=== PATIENT | female | born 1995 | race Hispanic/Latino ===

== ENCOUNTER → 2019-08-18 | Emergency (ER) | payer SELFPAY ==
[~2019-08-18] VITALS: Ht 165.1 cm; Wt 81.6 kg
[~2019-08-18] MED LIST: ASPIRIN 81 MG CHEW TAB PO ONE; CEFTRIAXONE SOD 1 GM/NS 50 ML 50 ML IV ONE; IOPAMIDOL 370 MG/ML 200 ML INFUS..BTL INJ ONE; KEFLEX500 MG PO; KETOROLAC TROMETHAMINE 30 MG/ML VIAL IV STA; SODIUM CHLORIDE 0.9% 50ML 50 ML ONE
--- NOTE | 2019-08-18 21:49 | Emergency Department Note ---
History of Present Illnes History of Present Illness Chief Complaint: Chest Pain History of Present Illness This is a 24 year old female complaining of chest pain that began at 6: 30 pm, suddenly while in her backyard. Pt described the pain as sudden, sharp and worse with inspiration. Chief Complaint Comment 24 Y/O FEMALE PT A&OX3 PRESENTS TO THE ER C/O MIDSTERNAL CHEST PRESSURE AND SOB ONSET THIS AFTERNOON AT 1830; PT STATES SHE WAS OUTSIDE WITH HER FAMILY BY THE POO, WHEN SYMPTOMS STARTED; PT STATES WHEN CHEST PAIN STARTED PAIN RADIATED TO LT SHOULDER BUT DENIES PAIN AT THIS TIME; PT CURRENTLY REPORTS CP AND SOB; PT TACHYPNEIC IN TRIAGE; 18G IV CATH PLACED IN LT AC; BLOOD UA OBTAINED FOR ANALYSIS; EKG PERFORMED AND GIVEN TO ER MD FOR EVAL; DR. PAGAN IN TRIAGE FOR INITIAL EVAL. Historian: Patient Arrival Mode: Car Collar Stitcher Required: No Radiation: non-radiation Severity: mild Onset quality: sudden Duration (how long): hour(s) Timing of current episode: intermittent Progression: improving Context: recent illness, recent surgery, trauma/injury, new medications, other Relieving factors: none Exacerbating factors: none Associated symptoms: chest pain Treatments prior to arrival: none Past Medical/Family History Physician Review I have reviewed the patient's past medical and family history. Any updates have been documented here. Past Medical History Recent Fever: Yes (febrile in the ED at 100/2 ) Clinical Suspicion of Infectio: Yes New/Unexplained Change in Ment: No Social History Smoking Cessation: Never Smoker Alcohol Use: Social Any Illegal Drug Use: No Physically hurt or threatened: No Review of Systems Review of Systems Constitutional: no symptoms EENTM: no symptoms Cardiovascular: chest pain, palpitations Respiratory: no symptoms Gastrointestinal: no symptoms Genitourinary: no symptoms Musculoskeletal: no symptoms Neurological: no symptoms Psychological: no symptoms Endocrine: no symptoms Hematological/Lymphatic: no symptoms Review of other systems All other systems reviewed and negative. Physical Exam Related Data Allergies: Coded Allergies: No Known Allergies (Unverified , 08/18/19) Vital signs reviewed: Yes Physical Exam CONSTITUTIONAL Constitutional: well-developed, well-nourished HENT HENT: normocephalic, atraumatic, oropharynx clear/moist, nose normal HENT L/R: left ext ear normal, right ext ear normal EYES Eyes: PERRL, conjunctivae normal NECK Neck: ROM normal PULMONARY Pulmonary: effort normal, breath sounds normal CARDIOVASCULAR Cardiovascular: regular rhythm, heart sounds normal, capillary refill normal, normal rate GASTROINTESTINAL Abdominal: soft, nontender, bowel sounds normal GENITOURINARY Genitourinary: exam deferred SKIN Skin: warm, dry MUSCULOSKELETAL Musculoskeletal: ROM normal NEUROLOGICAL Neurological: alert, oriented x 3, no gross motor or sensory deficits PSYCHOLOGICAL Psychological: mood/affect normal, judgement normal Results Laboratory Lab results reviewed: Yes Laboratory comments Laboratory Tests Test 08/18/19 21:42 White Blood Count 14.52 x10e3/uL (4.8-10.8) Red Blood Count 5.52 x10e6/uL (3.6-5.1) Hemoglobin 13.2 g/dL (12.0-16.0) Hematocrit 42.0 % (34.2-44.1) Mean Corpuscular Volume 76.1 fL (81-99) Mean Corpuscular Hemoglobin 23.9 pg (28-32) Mean Corpuscular Hemoglobin Concent 31.4 g/dL (31-35) Red Cell Distribution Width 14.1 % (11.7-14.4) Platelet Count 386 x10e3/uL (140-360) Neutrophils (%) (Auto) 69.8 % (38.7-80.0) Lymphocytes (%) (Auto) 23.6 % (18.0-39.1) Monocytes (%) (Auto) 4.4 % (4.4-11.3) Eosinophils (%) (Auto) 1.0 % (0.0-6.0) Basophils (%) (Auto) 0.6 % (0.0-1.0) Neutrophils # (Auto) 10.1 (2.1-6.9) Lymphocytes # (Auto) 3.4 (1.0-3.2) Monocytes # (Auto) 0.6 (0.2-0.8) Eosinophils # (Auto) 0.1 (0.0-0.4) Basophils # (Auto) 0.1 (0.0-0.1) Absolute Immature Granulocyte (auto 0.09 x10e3/uL (0-0.1) Urine Color Yellow (YELLOW) Urine Clarity Clear (CLEAR) Urine pH 6 (5 - 7) Urine Specific [place] 1.010 (1.010-1.025) Urine Protein Negative (NEGATIVE) Urine Glucose (UA) Negative (NEGATIVE) Urine Ketones Negative (NEGATIVE) Urine Blood Trace (NEGATIVE) Urine Nitrite Negative (NEGATIVE) Urine Bilirubin Negative (NEGATIVE) Urine Urobilinogen 0.2 mg/dL (0.2 - 1) Urine Leukocyte Esterase Trace (NEGATIVE) Urine RBC None /HPF (0-5) Urine WBC None /HPF (0-5) Urine Epithelial Cells Moderate /LPF (NONE) Urine Bacteria Moderate /HPF (NONE) Urine Test Negative (NEGATIVE) Sodium Level 142 mmol/L (136-145) Potassium Level 3.5 mmol/L (3.5-5.1) Chloride Level 106 mmol/L (98-107) Carbon Dioxide Level 25 mmol/L (22-29) Anion Gap 14.5 mmol/L (8-16) Blood Urea Nitrogen 9 mg/dL (7-26) Creatinine 0.83 mg/dL (0.57-1.11) Estimat Glomerular Filtration Rate > 60 ML/MIN (60-) BUN/Creatinine Ratio 11 (6-25) Glucose Level 100 mg/dL (74-118) Calcium Level 10.2 mg/dL (8.4-10.2) Total Bilirubin 0.4 mg/dL (0.2-1.2) Aspartate Amino Transf (AST/SGOT) 25 IU/L (5-34) Alanine Aminotransferase (ALT/SGPT) 43 IU/L (0-55) Alkaline Phosphatase 108 IU/L (40-150) Creatine Kinase 81 IU/L (29-168) Creatine Kinase MB 0.50 ng/mL (0-5.0) Troponin I < 0.001 ng/mL (0-0.300) Total Protein 8.4 g/dL (6.5-8.1) Albumin 4.3 g/dL (3.5-5.0) Globulin 4.1 g/dL (2.3-3.5) Albumin/Globulin Ratio 1.0 (0.8-2.0) Urine Opiates Screen Negative (NEGATIVE) Urine Methadone Screen Negative (NEGATIVE) Urine Barbiturates Screen Negative (NEGATIVE) Urine Phencyclidine Screen Negative (NEGATIVE) Urine Amphetamines Screen Negative (NEGATIVE) Urine Methamphetamines Screen Negative (NEGATIVE) Urine Benzodiazepines Screen Negative (NEGATIVE) Urine Cocaine Screen Negative (NEGATIVE) Urine Cannabinoids Screen Negative (NEGATIVE) Imaging Imaging results reviewed: Yes Impressions IMPRESSION: Somewhat limited examination for pulmonary embolism. No evidence of pulmonary embolism to the level of the segmental pulmonary arteries. Hepatomegaly and hepatic steatosis. Signed by: Dr. Renetta Adorno MD on 08/19/2019 1:36 AM Critical Care Time Subsequent provider I assumed direction of critical care for this patient from another provider of my specialty. Assessment & Plan Assessment & Plan Problems: (1) Chest pain (2) UTI (urinary tract infection) Reassessment Reassessment time: 02:20 Reassessment Pt reports feeling better, all labs and imaging discussed with pt- pt wished to go home. This patient presents with chest pain that is very unlikely angina or acute coronary syndrome. The emergency department evaluation has not identified any cause for suspicion that this chest pain has a cardiac etiology. Based on their history, EKG (which showed no evidence of ischemia or infarction) and imaging, in addition to the patient's physical exam, I see no evidence at this time for a malignant etiology for the patient's chest pain. There is no acute evidence for pulmonary embolus, acute myocardial infarction, pneumothorax, [place]er[place]eve syndr ome, cardiac tamponade, thoracic artery dissection, or any other emergent cardiac, pulmonary or aortic pathology. Given the low pre-test probability for cardiac etiology of chest pain and the absence of any sign of ischemia or infarction, discharge for outpatient follow-up and further evaluation is reasonable. I have explained to the patient that even though a cardiac problem is very unlikely, follow-up and further testing is required to reduce further the already small uncertainty that exists. Other life-threatening diagnoses have been considered. The patient understands the need to return immediately if their symptoms worsen or they develop any new symptoms, and not to engage in any significant exertional activity until follow-up is obtained. Depart Disposition: HOME, SELF-jail Meds Active Scripts Cephalexin Monohydrate (KEFLEX) 500 Mg Capsule, 500 MG PO Q6H, #40 TAB 0 Refills Prov:CHAPIS PAGAN DO 08/19/19 Medications in the ED Aspirin 81 mg PRN ONCE PO ; Start 08/18/19 at 21:45; Stop 08/18/19 at 21:46; Status UNV CHAPIS PAGAN DO August 18, 2019 21:49
[2019-08-18 21:58] LABS: BASOPHILS # (AUTO) 0.1 (0.0-0.1); BASOPHILS % 0.6 % (0.0-1.0); EOSINOPHILS # (AUTO) 0.1 (0.0-0.4); HEMOGLOBIN 13.2 g/dL (12.0-16.0); LYMPHOCYTES # (AUTO) 3.4 (1.0-3.2); LYMPHOCYTES % 23.6 % (18.0-39.1); MEAN CORPUSCULAR HEMOGLOBIN 23.9 pg (28-32); MEAN CORPUSCULAR HGB CONC 31.4 g/dL (31-35); MEAN CORPUSCULAR VOLUME 76.1 fL (81-99); MONOCYTES # (AUTO) 0.6 (0.2-0.8); MONOCYTES % 4.4 % (4.4-11.3); NEUTROPHILS # (AUTO) 10.1 (2.1-6.9); NEUTROPHILS % 69.8 % (38.7-80.0); PLATELET COUNT 386 x10e3/uL (140-360); RED BLOOD COUNT 5.52 x10e6/uL (3.6-5.1); RED CELL DISTRIBUTION WIDTH 14.1 % (11.7-14.4)
[2019-08-18 22:04] LABS: AMPHETAMINES SCREEN,URINE NEGATIVE (NEGATIVE); BENZODIAZEPINES SCREEN,URINE NEGATIVE (NEGATIVE); BILIRUBIN,URINE NEGATIVE (NEGATIVE); CLARITY,URINE CLEAR (CLEAR); COLOR,URINE YELLOW (YELLOW); KETONES,URINE NEGATIVE (NEGATIVE); LEUKOCYTE ESTERASE ,URINE TRACE (NEGATIVE); NITRITE,URINE NEGATIVE (NEGATIVE); PHENCYCLIDINE SCREEN,URINE NEGATIVE (NEGATIVE); PREGNANCY TEST, URINE NEGATIVE (NEGATIVE); PROTEIN,URINE DIPSTICK NEGATIVE (NEGATIVE); URINE UROBILINOGEN 0.2 mg/dL (0.2 - 1)
[2019-08-18 22:12] LABS: BACTERIA,URINE MODERATE /HPF; EPITHELIAL CELLS,URINE MODERATE /LPF
[2019-08-18 22:14] LABS: ALANINE AMINOTRANSFERASE 43 IU/L (0-55); ALBUMIN 4.3 g/dL (3.5-5.0); ALKALINE PHOSPHATASE 108 IU/L (40-150); ANION GAP 14.5 mmol/L (8-16); BLOOD UREA NITROGEN 9 mg/dL (7-26); BUN/CREATININE RATIO 11 (6-25); CALCIUM 10.2 mg/dL (8.4-10.2); CARBON DIOXIDE 25 mmol/L (22-29); CHLORIDE 106 mmol/L (98-107); CREATINE KINASE 81 IU/L (29-168); CREATININE, SERUM 0.83 mg/dL (0.57-1.11); EST GLOMERULAR FILTRATION RATE > 60 ML/MIN (60-); GLUCOSE 100 mg/dL (74-118); POTASSIUM 3.5 mmol/L (3.5-5.1); SODIUM 142 mmol/L (136-145)
--- NOTE | 2019-08-18 23:12 | Diagnostic Imaging Report ---
EXAMINATION: CHEST SINGLE (PORTABLE) INDICATION: Chest pain. COMPARISON: None FINDINGS: TUBES and LINES: None. LUNGS: Lungs are well inflated. There is no evidence of pneumonia or pulmonary edema. PLEURA: No pleural effusion or pneumothorax. HEART AND MEDIASTINUM: The cardiomediastinal silhouette is unremarkable. BONES AND SOFT TISSUES: No acute osseous lesion. Soft tissues are unremarkable. UPPER ABDOMEN: No free air under the diaphragm. IMPRESSION: No acute thoracic abnormality. Signed by: Dr. Renetta Adorno MD on 08/18/2019 11:09 PM
--- NOTE | 2019-08-18 23:12 | NUR ---
Patient was taken to [facility] for CT scan procedure via stretcher. AAOx4, VSS.
--- NOTE | 2019-08-19 01:39 | Diagnostic Imaging Report ---
TECHNIQUE: CT of the chest, abdomen and pelvis with intravenous contrast. INDICATION: Chest pain. COMPARISON: None. TECHNIQUE: Chest, Abdomen and pelvis were scanned utilizing a multidetector helical scanner from the thoracic inlet to the pubic symphysis after administration of IV contrast. Coronal and sagittal reformations were obtained. Pulmonary embolism protocol was performed. Routine protocol was performed of the abdomen and pelvis. COMPLICATIONS: None RADIATION DOSE: Total DLP: 1360 mGy*cm Dose modulation, iterative reconstruction, and/or weight based adjustment of the mA/kV was utilized to reduce the radiation dose to as low as reasonably achievable. FINDINGS: LINES AND TUBES: None PULMONARY ARTERIES: Exam is somewhat limited by contrast bolus timing. No filling defect is identified within the pulmonary arteries to the segmental level. The subsegmental pulmonary arteries are not well opacified. Main pulmonary artery measures in diameter. LUNGS AND AIRWAYS: The central airways are patent. No evidence of pneumonia or pulmonary edema. Scattered mild dependent subsegmental atelectasis. Small 3 mm ground glass nodule in the right lower lobe on series 2, image 33, likely infectious or inflammatory. PLEURA: The pleural spaces are clear. HEART AND MEDIASTINUM: The thyroid gland is normal. No significant mediastinal, hilar or axillary lymphadenopathy is seen. The heart and pericardium are within normal limits. HEPATOBILIARY: Diffuse hepatic steatosis and hepatomegaly. No focal hepatic lesions. No biliary ductal dilatation. SPLEEN: No splenomegaly. PANCREAS: No focal masses or ductal dilatation. ADRENALS: No adrenal nodules. KIDNEYS/URETERS: No hydronephrosis, stones, or solid mass lesions. PELVIC ORGANS/BLADDER: Decompressed bladder. PERITONEUM / RETROPERITONEUM: No free air or fluid. LYMPH NODES: No lymphadenopathy. VESSELS: Unremarkable. GI TRACT: No distention or wall thickening. Normal appendix. BONES AND SOFT TISSUES: Unremarkable. IMPRESSION: Somewhat limited examination for pulmonary embolism. No evidence of pulmonary embolism to the level of the segmental pulmonary arteries. Hepatomegaly and hepatic steatosis. Signed by: Dr. Renetta Adorno MD on 08/19/2019 1:36 AM
[2019-08-19 03:05] VITALS: BP 133/78
== END | disposition home or self-care (01) ==
LOC: ER 21:08
DX: R07.89 Other chest pain (principal); R06.02 Shortness of breath; N39.0 Urinary tract infection, site not specified
CPT/HCPCS: 36415; 71045; 71260; 74177; 80053; 80307; 81001; 81025; 82550; 82553; 84484; 85025; 85379; 93005; J0696; J1885; Q9967

== ENCOUNTER 2020-11-18 11:22 | Emergency (ER) | payer SELFPAY ==
[~2020-11-18] VITALS: Ht 165.1 cm; Wt 81.6 kg
[~2020-11-18 11:22] MED LIST changes: -ASPIRIN 81 MG CHEW TAB PO ONE; -CEFTRIAXONE SOD 1 GM/NS 50 ML 50 ML IV ONE; -IOPAMIDOL 370 MG/ML 200 ML INFUS..BTL INJ ONE; -KETOROLAC TROMETHAMINE 30 MG/ML VIAL IV STA; -SODIUM CHLORIDE 0.9% 50ML 50 ML ONE
[2020-11-18 11:56] LABS: CLARITY,URINE CLEAR (CLEAR); COLOR,URINE YELLOW (YELLOW); KETONES,URINE NEGATIVE (NEGATIVE); LEUKOCYTE ESTERASE ,URINE SMALL (NEGATIVE); NITRITE,URINE NEGATIVE (NEGATIVE); PROTEIN,URINE DIPSTICK NEGATIVE (NEGATIVE); URINE UROBILINOGEN 0.2 mg/dL (0.2 - 1)
[2020-11-18 12:04] LABS: BACTERIA,URINE FEW /HPF; EPITHELIAL CELLS,URINE MODERATE /LPF; RBC,URINE 0-5 /HPF (0-5)
[2020-11-18] MEDS ORDERED: IBUPROFEN600 MG PO (14:42)
[2020-11-18] MEDS ORDERED: LIDOCAINE PAIN1 EACH TD (14:42)
== END 2020-11-18 14:56 | disposition home or self-care (01) ==
LOC: ER 11:27
DX: R09.1 Pleurisy (principal); R10.2 Pelvic and perineal pain
CPT/HCPCS: 36415; 71045; 81001; 81025; 82948; 99283

== ENCOUNTER 2022-02-16 19:32 | Emergency (ER) | payer OTHER ==
[~2022-02-16] VITALS: Ht 165.1 cm; Wt 84.4 kg
[~2022-02-16 19:32] MED LIST changes: +IBUPROFEN600 MG PO; +LIDOCAINE PAIN1 EACH TD
[2022-02-16] MEDS ORDERED: HYDROXYZINE HCL 25 MG TAB PO ONE (19:57)
[2022-02-16] MEDS ORDERED: ONDANSETRON HCL INJ 2MG/ML 2ML 2 MG/ML VIAL IV STA (19:58)
[2022-02-16 19:59] LABS: BASOPHILS # (AUTO) 0.1 (0.0-0.1); BASOPHILS % 0.6 % (0.0-1.0); EOSINOPHILS # (AUTO) 0.2 (0.0-0.4); EOSINOPHILS % 1.7 % (0.0-6.0); HEMATOCRIT 35.4 % (34.2-44.1); HEMOGLOBIN 9.9 g/dL (12.0-16.0); LYMPHOCYTES % 28.1 % (18.0-39.1); MEAN CORPUSCULAR HEMOGLOBIN 19.9 pg (28-32); MEAN CORPUSCULAR VOLUME 71.1 fL (81-99); MONOCYTES # (AUTO) 0.6 (0.2-0.8); MONOCYTES % 5.6 % (4.4-11.3); NEUTROPHILS # (AUTO) 6.9 (2.1-6.9); NEUTROPHILS % 63.7 % (38.7-80.0); PLATELET COUNT 434 x10e3/uL (140-360); RED BLOOD COUNT 4.98 x10e6/uL (3.6-5.1); RED CELL DISTRIBUTION WIDTH 14.8 % (11.7-14.4)
[2022-02-16] MEDS ORDERED: ONDANSETRON HCL 4 MG ORAL DISINTEGRATING TAB ONE ×2 (20:06→20:07)
[2022-02-16 20:17] LABS: ANION GAP 14.7 mmol/L (8-16); BLOOD UREA NITROGEN 8 mg/dL (7-26); BUN/CREATININE RATIO 10 (6-25); CALCIUM 9.2 mg/dL (8.4-10.2); CARBON DIOXIDE 24 mmol/L (22-29); CHLORIDE 105 mmol/L (98-107); CREATINE KINASE 71 IU/L (29-168); CREATININE, SERUM 0.78 mg/dL (0.57-1.11); GLUCOSE 103 mg/dL (74-118); POTASSIUM 3.7 mmol/L (3.5-5.1); SODIUM 140 mmol/L (136-145)
[2022-02-16] MEDS ORDERED: VISTARIL50 MG PO (20:52)
[2022-02-16 21:08] VITALS: BP 144/75
== END 2022-02-16 21:06 | disposition home or self-care (01) ==
LOC: ER 19:35
DX: R50.9 Fever, unspecified (principal); R07.89 Other chest pain; R20.2 Paresthesia of skin; F41.9 Anxiety disorder, unspecified
CPT/HCPCS: 36415; 71045; 80048; 82550; 82553; 84484; 85025; 93005; 99284; J3410; Q0162